=== PATIENT | female | born 1990 | race Caucasian/White ===

== ENCOUNTER 2017-07-09 07:39 | Emergency (ER) | payer SELFPAY ==
[~2017-07-09] VITALS: Ht 157.5 cm; Wt 49.9 kg
--- NOTE | 2017-07-09 07:54 | Emergency Room Report ---
History of Present Illness General Chief Complaint: abdominal pain Source: Patient Present Illness HPI Patient is a 27-year-old female who presented after increased left-sided abdominal pain. Patient had a gradual onset of symptoms. Patient associated nausea and vomiting as well as some diarrhea. Patient reports having increased left-sided pain. Patient states that she had a positive test last night. Patient reportedly is the last menstrual period was 5 weeks ago the patient reports having increased sharp pain.The patient reportedly had been having worsening pain for 1 day. She reports having some nonbloody emesis. She had been having some cough Allergies: Coded Allergies: No Known Allergies (Unverified , 07/09/17) Patient History Past Medical History: see triage record Reviewed Nursing Documentation: PMH: Agreed; PSxH: Agreed Review of Systems All Other Systems: negative except mentioned in HPI Physical Exam Sp02 EP Interpretation: reviewed, normal General Appearance: normal inspection, alert, GCS 15, moderate distress Head: atraumatic ENT: normal ENT inspection, hearing grossly normal, normal voice Neck: normal inspection, full range of motion, supple, no bony tend Respiratory: normal inspection, lungs clear, normal breath sounds, no respiratory distress, no retraction, no wheezing Cardiovascular #1: regular rate, rhythm, no edema Gastrointestinal: normal bowel sounds, non tender, soft, no guarding, no hernia , tenderness Genitourinary: no CVA tenderness Musculoskeletal: normal inspection, back normal, normal range of motion Neurologic: normal inspection, alert, oriented x3, responsive, 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 Differential diagnoses included ischemic bowel, appendicitis, perforated viscus, abdominal aortic aneurysm, inferior myocardial infarction, viral gastroenteritis, ruptured ectopic, threatened .The pelvic ultrasound showed intrauterine at approximately 5 weeks without evidence of ovarian torsion. The patient was given Zofran IV as well as IV fluids with improvement in her symptoms. The patient was advised to follow up with [facility]. The patient was to return if she began having fever or worsening pain persistent vomiting or other concerns. Labs Test 07/09/17 08:05 07/09/17 08:42 White Blood Count 12.7 K/UL (4.8-10.8) Red Blood Count 4.55 M/UL (4.20-5.40) Hemoglobin 13.8 G/DL (12.0-16.0) Hematocrit 39.8 % (37.0-47.0) Mean Corpuscular Volume 88 FL (80-99) Mean Corpuscular Hemoglobin 30.3 PG (27.0-31.0) Mean Corpuscular Hemoglobin Concent 34.6 G/DL (32.0-36.0) Red Cell Distribution Width 10.4 % (11.6-14.8) Platelet Count 312 K/UL (150-450) Mean Platelet Volume 9.1 FL (6.5-10.1) Neutrophils (%) (Auto) 81.6 % (45.0-75.0) Lymphocytes (%) (Auto) 11.0 % (20.0-45.0) Monocytes (%) (Auto) 6.0 % (1.0-10.0) Eosinophils (%) (Auto) 0.5 % (0.0-3.0) Basophils (%) (Auto) 0.9 % (0.0-2.0) Prothrombin Time 10.2 SEC (9.30-11.50) Prothromb Time International Ratio 1.0 (0.9-1.1) Activated Partial Thromboplast Time 28 SEC (23-33) Sodium Level 137 MMOL/L (136-145) Potassium Level 3.8 MMOL/L (3.5-5.1) Chloride Level 104 MMOL/L (98-107) Carbon Dioxide Level 20 MMOL/L (21-32) Anion Gap 13 mmol/L (5-15) Blood Urea Nitrogen 8 mg/dL (7-18) Creatinine 0.8 MG/DL (0.55-1.30) Estimat Glomerular Filtration Rate > 60 mL/min (>60) Glucose Level 90 MG/DL (74-106) Calcium Level 9.3 MG/DL (8.5-10.1) Total Bilirubin 0.6 MG/DL (0.2-1.0) Aspartate Amino Transf (AST/SGOT) 14 U/L (15-37) Alanine Aminotransferase (ALT/SGPT) 26 U/L (12-78) Alkaline Phosphatase 55 U/L (46-116) Total Protein 7.6 G/DL (6.4-8.2) Albumin 3.7 G/DL (3.4-5.0) Globulin 3.9 g/dL Albumin/Globulin Ratio 0.9 (1.0-2.7) Lipase 105 U/L (73-393) Human Chorionic Gonadotropin, Quant 9965 mIU/mL (1-6) Urine Color Pale yellow Urine Appearance Clear Urine pH 8 (4.5-8.0) Urine Specific [place] 1.010 (1.005-1.035) Urine Protein 1+ (NEGATIVE) Urine Glucose (UA) Negative (NEGATIVE) Urine Ketones Negative (NEGATIVE) Urine Occult Blood Negative (NEGATIVE) Urine Nitrite Negative (NEGATIVE) Urine Bilirubin Negative (NEGATIVE) Urine Urobilinogen Normal MG/DL (0.0-1.0) Urine Leukocyte Esterase Negative (NEGATIVE) Urine RBC 0-2 /HPF (0 - 2) Urine WBC 0-2 /HPF (0 - 2) Urine Squamous Epithelial Cells Few /LPF (NONE/OCC) Urine Bacteria Occasional /HPF (NONE) Status: improved Disposition: HOME, SELF-CARE Condition: Stable Scripts Doxylamine/Pyridoxine Hcl (YOGESH JULIEN 10-10 MG TABLET) 1 Each Tablet. 1 EACH PO QHS for nausea or vomiting, #30 TAB Prov: Brian Lopez 07/09/17 Brian Lopez July 09, 2017 07:54
[2017-07-09] MEDS ORDERED: Morphine Sulfate 4mg/ml Inj IVP ONE (08:00)
[2017-07-09 08:29] VITALS: BP 128/86
[2017-07-09 08:51] LABS: BASOPHILS % (AUTO) 0.9 % (0.0-2.0); EOSINOPHILS % (AUTO) 0.5 % (0.0-3.0); HEMATOCRIT 39.8 % (37.0-47.0); HEMOGLOBIN 13.8 G/DL (12.0-16.0); MEAN CORPUSCULAR VOLUME 88 FL (80-99); NEUTROPHILS % (AUTO) 81.6 % (45.0-75.0); PLATELET COUNT 312 K/UL (150-450); RED BLOOD COUNT 4.55 M/UL (4.20-5.40); RED CELL DISTRIBUTION WIDTH 10.4 % (11.6-14.8); WHITE BLOOD COUNT 12.7 K/UL (4.8-10.8)
[2017-07-09 08:54] LABS: APPEARANCE,URINE CLEAR; BILIRUBIN, URINE NEGATIVE (NEGATIVE); COLOR,URINE PALE YELLOW; GLUCOSE, URINE (UA) NEGATIVE (NEGATIVE); KETONES,URINE NEGATIVE (NEGATIVE); LEUKOCYTE ESTERASE ,URINE NEGATIVE (NEGATIVE); NITRITE,URINE NEGATIVE (NEGATIVE); PH,URINE 8 (4.5-8.0); PROTEIN,URINE 1+ (NEGATIVE); UROBILINOGEN,URINE NORMAL MG/DL (0.0-1.0)
[2017-07-09 09:12] LABS: ANION GAP 13 mmol/L (5-15); BLOOD UREA NITROGEN 8 mg/dL (7-18); CALCIUM 9.3 MG/DL (8.5-10.1); CARBON DIOXIDE 20 MMOL/L (21-32); CHLORIDE 104 MMOL/L (98-107); CREATININE 0.8 MG/DL (0.55-1.30); POTASSIUM 3.8 MMOL/L (3.5-5.1); SODIUM 137 MMOL/L (136-145)
[2017-07-09 09:19] LABS: ALANINE AMINOTRANSFERASE 26 U/L (12-78); ALBUMIN 3.7 G/DL (3.4-5.0); ALBUMIN/GLOBULIN RATIO 0.9 (1.0-2.7); ALKALINE PHOSPHATASE 55 U/L (46-116); ASPARTATE AMINO TRANSFERASE 14 U/L (15-37); BILIRUBIN,TOTAL 0.6 MG/DL (0.2-1.0)
[2017-07-09 10:21] VITALS: BP 122/88
--- NOTE | 2017-07-09 10:42 | Diagnostic Imaging Report ---
Indication: Left sided pelvic pain during . Technique: Transabdominal and transvaginal ultrasound. Comparison: None Findings: Uterus is retroverted. A intrauterine gestational sac is identified. A yolk sac and pole are identified. Coates-rump length measures approximately 2.5 mm. heart motion is seen on cine loops. heart rate of approximately 113 bpm. The left ovary measures 4 x 3 x 2 cm, 12.4 mL. The right ovary measures 2.1 x 2.7 x 1.2 cm/5.3 mL. No definite focal adnexal mass lesion is appreciated. Color Doppler flow noted to the bilateral ovaries. No free pelvic fluid is identified. Bladder is unremarkable in appearance. Some nonspecific and nondilated bowel loops are partially visualized. IMPRESSION: Live intrauterine with gestational age by ultrasound (crown-rump length) of approximately 5 weeks 6 days. heart rate approximately 113 bpm. No definite adnexal mass or free fluid seen at this time. No evidence to suggest ovarian torsion. Obstetric follow-up recommended.
[2017-07-09] MEDS ORDERED: DICLEGIS DR 101 EACH PO (11:10)
[2017-07-09 11:22] VITALS: BP 122/88
== END 2017-07-09 11:31 | disposition home or self-care (01) ==
LOC: EMR 08:26
DX: O26.91 Pregnancy related conditions, unspecified, first trimester (principal); Z3A.01 Less than 8 weeks gestation of pregnancy; K52.9 Noninfective gastroenteritis and colitis, unspecified
CPT/HCPCS: 36415; 76801; 76830; 80053; 81003; 83690; 84702; 85025; 85610; 85730; 96361; 96374; 96375; 99284; J2270; J2405